=== PATIENT | female | born 1985 | race Two or more races ===

== ENCOUNTER 2024-07-30 15:24 | Outpatient (RCR) | payer MEDICAID, SELFPAY | END 2024-08-15 23:59 | disposition home or self-care (01) | LOC: SCTC 15:24 | PROVIDERS: PCP Family Medicine; Referring Provider Family Medicine; Visit Provider Nurse Practitioner Family | DX: Z09 Encounter for follow-up examination after completed treatment for conditions other than malignant neoplasm (principal); Z86.718 Personal history of other venous thrombosis and embolism; Z86.711 Personal history of pulmonary embolism; Z79.01 Long term (current) use of anticoagulants; Z86.2 Personal history of diseases of the blood and blood-forming organs and certain disorders involving the immune mechanism | CPT/HCPCS: 99214; G0463 ==

== ENCOUNTER 2024-09-29 15:29 | Outpatient (RCR) | payer MEDICAID, SELFPAY | END 2024-10-13 23:59 | disposition home or self-care (01) | LOC: SCTC 15:29 | PROVIDERS: PCP Family Medicine; Referring Provider Family Medicine; Visit Provider Nurse Practitioner Family | DX: Z09 Encounter for follow-up examination after completed treatment for conditions other than malignant neoplasm (principal); Z86.2 Personal history of diseases of the blood and blood-forming organs and certain disorders involving the immune mechanism; Z86.711 Personal history of pulmonary embolism; Z86.718 Personal history of other venous thrombosis and embolism; Z79.01 Long term (current) use of anticoagulants | CPT/HCPCS: 99212; G0463 ==

== ENCOUNTER 2024-11-12 13:24 | Outpatient (RCR) | payer MEDICAID, SELFPAY | END 2024-11-12 23:59 | disposition home or self-care (01) | LOC: SCTC 13:24 | PROVIDERS: PCP Family Medicine; Referring Provider Family Medicine; Visit Provider Internal Medicine Hematology & Oncology | DX: D50.9 Iron deficiency anemia, unspecified (principal); N92.0 Excessive and frequent menstruation with regular cycle; Z86.711 Personal history of pulmonary embolism; Z86.718 Personal history of other venous thrombosis and embolism; Z79.01 Long term (current) use of anticoagulants | CPT/HCPCS: 96365; 96375; J1756; J2919; J3490; J7040; J7050 ==

== ENCOUNTER 2024-12-10 13:15 | Outpatient (RCR) | payer MEDICAID, SELFPAY | END 2024-12-13 23:59 | disposition home or self-care (01) | LOC: SCTC 13:15 | PROVIDERS: PCP Family Medicine; Referring Provider Family Medicine; Visit Provider Internal Medicine Hematology & Oncology | DX: D50.9 Iron deficiency anemia, unspecified (principal); Z86.718 Personal history of other venous thrombosis and embolism; Z79.01 Long term (current) use of anticoagulants | CPT/HCPCS: 96365; A4216; J1756; J7040; J7050 ==

== ENCOUNTER 2025-01-06 13:54 | Outpatient (RCR) | payer MEDICAID, SELFPAY ==
[2024-12-18 15:00] LABS: Basophils % (Auto) 1 % (0-2.5); Eosinophils # (Auto) 0.2 Thou/mm3 (0.0-0.5); Eosinophils % (Auto) 4 % (0-10); Hematocrit 33.1 % (36.0-46.0); Hemoglobin 11.4 g/dL (12.0-16.0); Immature Granulocytes % (Auto) 1 % (0-0); Immature Granulocytes Auto 0.03 Thou/mm3 (0.00-0.00); Lymphocytes # (Auto) 1.6 Thou/mm3 (1.0-4.8); Lymphocytes % (Auto) 34 % (10-50); Mean Corpuscular HGB Conc 34.4 g/dl (31.0-37.0); Mean Corpuscular Hemoglobin 29.2 pg (25.0-35.0); Mean Corpuscular Volume 85 fL (80-100); Monocytes # (Auto) 0.4 Thou/mm3 (0.0-0.8); Monocytes % (Auto) 9 % (0-12); Neutrophils # (Auto) 2.4 Thou/mm3 (1.8-7.7); Neutrophils % (Auto) 51 % (37-80); Nucleated Red Blood Cell % 0 /100 WBC (0); Platelet Count 228 Thou/mm3 (140-440); RDW Standard Deviation 47.7 fL (36.4-46.3); Red Blood Count 3.91 Miln/mm3 (4.00-5.20); White Blood Count 4.7 Thou/mm3 (3.6-11.0)
[2024-12-18 15:19] LABS: Alanine Aminotransferase 13 U/L (10-49); Albumin/Globulin Ratio 1.5 (1.2-2.2); Alkaline Phosphatase 77 U/L (46-116); Anion Gap 12 (7-16); Aspartate Amino Transferase 19 U/L (0-34); BUN/Creatinine Ratio 14 Ratio (12-20); Bilirubin,Total 0.4 mg/dL (0.3-1.2); Blood Urea Nitrogen 23 mg/dL (9-23); Calcium 8.4 mg/dL (8.3-10.6); Calcium (Corrected) 8.4 mg/dL (8.5-10.1); Carbon Dioxide 21.4 mMol/L (20.0-31.0); Chloride 109 mMol/L (98-107); Creatinine (Component) 1.6 mg/dL (0.6-1.3); Globulin 2.7 gm/dL (2.3-3.5); Glucose 89 mg/dL (74-106); Osmolality,Calculated 285 (275-295); Potassium 4.1 mMol/L (3.4-5.1); Sodium 142 mMol/L (136-145); Total Protein 6.7 gm/dL (5.7-8.2); eGFR 42 See Note
== END 2025-01-12 23:59 | disposition home or self-care (01) ==
LOC: SCTC 13:54
PROVIDERS: PCP Family Medicine; Referring Provider Family Medicine; Visit Provider Internal Medicine Hematology & Oncology
DX: D50.9 Iron deficiency anemia, unspecified (principal); Z86.718 Personal history of other venous thrombosis and embolism; Z86.711 Personal history of pulmonary embolism; Z79.01 Long term (current) use of anticoagulants; N92.0 Excessive and frequent menstruation with regular cycle; N28.9 Disorder of kidney and ureter, unspecified
CPT/HCPCS: 80053; 85025; 96365; 96413; 99212; A4216; J1756; J7040; J7050; G0463

== ENCOUNTER 2025-03-10 09:50 | Outpatient (AMB) | payer MEDICAID, SELFPAY ==
[2025-03-10 10:06] VITALS: BP 129/86; PULSE 70; RESP 16; TEMP 36.2; O2SAT 98
--- NOTE | 2025-03-10 10:06 | AMB.GYNCLNOT ---
Vital Signs 03/10/25 10:06 Weight 95.878 kg Weight Measurement Method Standing Scale BP 129/86 H Blood Pressure Source Automatic Cuff Blood Pressure Location Left Upper Arm Position Sitting Respiration 16 Pulse 70 Pulse Source Monitor Temp 97.2 F Temp Source Oral Pulse Oximetry (%) 98 Oxygen Delivery Method Room Air Allergies/Home Meds Allergies & Medications Allergies No Known Allergies Allergy (Verified 03/10/25 10:07) Medication Reconciliation No Known Home Medications 03/10/25 [History Confirmed 03/10/25] Intake Visit Data Collection New Patient or Established: Established Patient (seen at [facility] within 3 years) Reason for Visit:: OBC Seen by Clinical Staff ONLY (RN/MA): No General Production Manager Required: Yes General Production Manager's name/title: PARVIZ REID MA Do You Feel Safe at Home: Yes Authorities Contacted: N/A PCP or OBGYN visit in last 3 months: Yes Date of Last PCP or OBGYN visit: 03/10/25 Hx Now: No Are you currently on any form of Control: No Last menstrual period: 02/17/25 Pain Present Currently: No Pain Scale Used: Sy-Mirza/Numerical Pain scale:: 0 Smoking Status Smoking Status: Never smoker Ground Control Approach Technician history Ground Control Approach Technician History Menstrual regularity: regular Flow: heavy Monthly: Yes How many days does period last: 7 Age at menarche: 13 Menopausal: No Currently sexually active: Yes Questionnaires Covid-19 Vaccine Questionnaire Has patient been vacinated for Covid-19 Have you been vacinated for Covid-19: Yes PHQ-9 PHQ-2 Over the last 2 weeks, how often have you been bothered by any of the following problems? 1. Little interest or pleasure in doing things: not at all 2. Feeling down, depressed, or hopeless: not at all Total score: 0 PHQ-9 3. Trouble falling or staying asleep, or sleeping too much: Not at all 4. Feeling tired or having little energy: Not at all 5. Poor appetite or overeating: Not at all 6. Feeling bad about yourself - or that you are a failure or have let yourself or your family down: Not at all 7. Trouble concentrating on things, such as reading the newspaper or watching television: Not at all 8. Moving or speaking so slowly that other people could have noticed? - Or the opposite - being so fidgety or restless that you have been moving around a lot more than usual: not at all 9. Thoughts that you would be better off or of hurting yourself in some way: Not at all Total score: 0 If you checked off any problems, how difficult have these problems made it for you to do your work, take care of things at home, or get along with other people?: not difficult at all Source: Developed by Drs. Zeke Strong, Jacquelyn Gilbert, Kelvin Geronimo and colleagues, with an educational samuel from [employer]. Depression screen completed yes Social History Living Situation History Marital Status: Single Lives With: Family Housing: House Tobacco History Smoking Status: Never smoker Second Hand Smoke Exposure: No Alcohol History Alcohol Intake: Never Domestic Abuse History Do You Feel Safe at Home: Yes Office Procedures OB Clinic LOC & Office Proc's Nursing/Assessment Patient Status: Established Patient OB Clinic Nursing Assessment: Medication Reconciliation, Update PMH in EMR and Vital Signs OB Clinic Coordination of Care: Education Complex Pt/Fam, Consent,records obtained, informed consent, Lab and Imaging orders, Results/Orders obtained and Staff clarify orders Established Patient Charge Established Patient Point Assignment: 85 Established Patient Point Charge: EP Level 3 (80-115) Assessment & Plan Diagnosis / Problem List (1) Pulmonary embolism: Status: Acute (2) Acute thrombosis of mesenteric vein: Status: Acute (3) Anticoagulation adequate: Status: Acute (4) Menorrhagia due to blood coagulation disorder: Status: Acute
== END 2025-03-10 10:19 | disposition home or self-care (01) ==
LOC: HODSOBC 09:50
PROVIDERS: Supervising Provider Obstetrics & Gynecology; Visit Provider Obstetrics & Gynecology
DX: N92.0 Excessive and frequent menstruation with regular cycle (principal); K55.059 Acute (reversible) ischemia of intestine, part and extent unspecified; I26.99 Other pulmonary embolism without acute cor pulmonale; D68.9 Coagulation defect, unspecified
CPT/HCPCS: 99213; G0463

== ENCOUNTER 2025-03-25 13:58 | Outpatient (RCR) | payer MEDICAID, SELFPAY | END 2025-04-14 23:59 | disposition home or self-care (01) | LOC: SCTC 13:58 | PROVIDERS: PCP Family Medicine; Referring Provider Nurse Practitioner Family; Visit Provider Nurse Practitioner Family | DX: D50.9 Iron deficiency anemia, unspecified (principal); N92.0 Excessive and frequent menstruation with regular cycle; Z86.711 Personal history of pulmonary embolism; Z86.718 Personal history of other venous thrombosis and embolism; Z79.01 Long term (current) use of anticoagulants; N28.9 Disorder of kidney and ureter, unspecified; E66.9 Obesity, unspecified; Z68.36 Body mass index [BMI] 36.0-36.9, adult | CPT/HCPCS: 99212; G0463 ==

== ENCOUNTER → 2025-04-30 | Outpatient (CLI) | payer MEDICAID, SELFPAY ==
--- NOTE | 2025-04-30 14:30 | XR_ITS ---
Examination: Pelvic ultrasound, transabdominal, complete Technique: Transabdominal ultrasound of the pelvis performed using grayscale imaging Date and time of exam: April 30, 2025, 1443 hours INDICATIONS: Irregular vaginal bleeding beginning 1 year ago. FINDINGS: Uterus 11.4 cm endometrial stripe 12 mm No uterine mass or intrauterine gestation Right ovary 2.6 cm arterial flow 16 mm follicular cyst Left ovary 2.0 cm arterial flow IMPRESSION: Enlarged uterus but no discrete uterine masses and no intrauterine gestation
== END | disposition home or self-care (01) ==
PROVIDERS: PCP Family Medicine; Referring Provider Obstetrics & Gynecology; Visit Provider Obstetrics & Gynecology
DX: N85.8 Other specified noninflammatory disorders of uterus (principal)
CPT/HCPCS: 76856

== ENCOUNTER 2025-05-13 10:12 | Outpatient (AMB) | payer MEDICAID, SELFPAY ==
[2025-05-13 10:31] VITALS: BP 120/80; PULSE 71; RESP 18; TEMP 36.5; O2SAT 95; BMI 36.8
--- NOTE | 2025-05-13 10:31 | GYNCLNT_ITS ---
Vital Signs 05/13/25 10:31 Height 1.63 m Height Method Stated Weight 97.182 kg Weight Measurement Method Standing Scale BMI 36.8 BP 120/80 Blood Pressure Source Automatic Cuff Blood Pressure Location Right Upper Arm Position Sitting Respiration 18 Pulse 71 Pulse Source Monitor Temp 97.7 F Temp Source Temporal Artery Scan Pulse Oximetry (%) 95 Oxygen Delivery Method Room Air Allergies/Home Meds Allergies & Medications Allergies No Known Allergies Allergy (Verified 05/13/25 10:32) Medication Reconciliation No Known Home Medications 03/10/25 [History Confirmed 05/13/25] Intake Visit Data Collection New Patient or Established: Established Patient (seen at [facility] within 3 years) Reason for Visit:: US RESULTS Seen by Clinical Staff ONLY (RN/MA): No Shipping Agent Required: Yes Shipping Agent's name/title: PARVIZ REID MA Do You Feel Safe at Home: Yes Authorities Contacted: N/A PCP or OBGYN visit in last 3 months: Yes Date of Last PCP or OBGYN visit: 03/10/25 Hx Now: No Are you currently on any form of Control: No Last menstrual period: 04/23/25 Pain Present Currently: No Pain Scale Used: Sy-Mirza/Numerical Pain scale:: 0 Smoking Status Smoking Status: Never smoker Immunizations Flu Vaccine in the Last 12 Months: No Flu Vaccine Exclusion Criteria: No Exclusion Criteria Personal Injury Law Specialist history Personal Injury Law Specialist History Menstrual regularity: irregular Flow: heavy Monthly: Yes How many days does period last: 6 Age at menarche: 13 Currently sexually active: Yes Questionnaires Covid-19 Vaccine Questionnaire Has patient been vacinated for Covid-19 Have you been vacinated for Covid-19: No PHQ-9 PHQ-2 Over the last 2 weeks, how often have you been bothered by any of the following problems? 1. Little interest or pleasure in doing things: not at all 2. Feeling down, depressed, or hopeless: not at all Total score: 0 PHQ-9 3. Trouble falling or staying asleep, or sleeping too much: Not at all 4. Feeling tired or having little energy: Not at all 5. Poor appetite or overeating: Not at all 6. Feeling bad about yourself - or that you are a failure or have let yourself or your family down: Not at all 7. Trouble concentrating on things, such as reading the newspaper or watching television: Not at all 8. Moving or speaking so slowly that other people could have noticed? - Or the opposite - being so fidgety or restless that you have been moving around a lot more than usual: not at all 9. Thoughts that you would be better off or of hurting yourself in some way: Not at all Total score: 0 If you checked off any problems, how difficult have these problems made it for you to do your work, take care of things at home, or get along with other people?: not difficult at all Source: Developed by Drs. Zeke Strong, Jacquelyn Gilbert, Kelvin Geronimo and colleagues, with an educational samuel from [employer]. Depression screen completed yes Social History Living Situation History Marital Status: Lives With: Family Housing: House Tobacco History Smoking Status: Never smoker Second Hand Smoke Exposure: No Alcohol History Alcohol Intake: Never Domestic Abuse History Do You Feel Safe at Home: Yes History of Present Illness HPI Narrative Sosa Valencia is a 39-year-old female with a history of superior mesenteric thrombosis, bilateral pulmonary emboli, iron deficiency anemia, renal i nsufficiency, and class C diabetes who presents for emergency room follow-up regarding abnormal uterine bleeding secondary to anticoagulation therapy. The patient was previously hospitalized on March 10, 2025, for acute mesenteric ischemia with unprovoked superior mesenteric thrombosis and bilateral pulmonary emboli, along with abnormal uterine bleeding secondary to anticoagulation. She is currently being treated at a cancer treatment center and reports heavy menstrual bleeding, which she understands is a known side effect of her apixaban therapy. She is currently taking apixaban 5 milligrams twice daily and reports that this medication will continue indefinitely. The patient's current medications include apixaban, vanofar, diphenyspine, teriparatide, insulin, Zofran, and Tylenol. She was initially treated with Eliquis 10 milligrams for 7 days, followed by the current 5 milligram dosing regimen. ROS: Genitourinary: Positive for heavy menstrual bleeding. Exam General General Appearance: alert, in no apparent distress and healthy appearing Head Head exam: atraumatic Neck Neck exam: Present normal inspection and trachea midline Chest Chest inspection: Present normal inspection and symmetric chest wall rise External exam: Present normal external exam; Absent tenderness Neuro Neurological exam: Present oriented X3 Psych Psychiatric exam: Present normal affect and normal mood Office Procedures OBC Clinic LOC & Office Proc's Nursing/Assessment Patient Status: Established Patient OB Clinic Nursing Assessment: Medication Reconciliation, Update PMH in EMR and Vital Signs OB Clinic Coordination of Care: Complex Care and Chronic Disease 1-5, Education Complex Pt/Fam, Consent,records obtained, informed consent, Results/Orders obtained and Staff clarify orders Established Patient Charge Established Patient Point Assignment: 95 Established Patient Point Charge: EP Level 3 (80-115) Assessment & Plan Diagnosis / Problem List (1) Pulmonary embolism: Status: Acute (2) Acute thrombosis of mesenteric vein: Status: Acute (3) Anticoagulation adequate: Status: Acute (4) Menorrhagia due to blood coagulation disorder: Status: Acute Plan Abnormal Uterine Bleeding Secondary to Anticoagulation: - Heavy menstrual bleeding as known side effect of apixaban 5 mg twice daily. - Patient continues indefinite anticoagulation for history of superior mesenteric thrombosis and bilateral pulmonary emboli. - Pelvic ultrasound from 04/30/2025 shows normal uterus measuring 11.4 cm with no fibroids, masses, or ovarian abnormalities. - Hormonal or medical management options contraindicated. Plan: - Endometrial ablation procedure planned (vaginal approach to burn uterine lining without hysterectomy). - Obtain surgical clearance from oncology team at [facility]. - Coordinate with oncology to hold apixaban for 7 days before and 7 days after surgery. - Submit insurance authorization for procedure. - Schedule surgery once insurance approval obtained. - Patient will be contacted when surgery is approved. Superior Mesenteric Thrombosis: - History of unprovoked superior mesenteric thrombosis with bilateral pulmonary emboli requiring long-term anticoagulation. - Currently managed by oncology team at [facility]. Plan: - Continue apixaban 5 mg twice daily indefinitely. - Ongoing management by oncology team at [facility].
== END 2025-05-13 10:53 | disposition home or self-care (01) ==
LOC: HODSOBC 10:12
PROVIDERS: PCP Family Medicine; Referring Provider Family Medicine; Supervising Provider Obstetrics & Gynecology; Visit Provider Obstetrics & Gynecology
DX: N93.8 Other specified abnormal uterine and vaginal bleeding (principal); D68.32 Hemorrhagic disorder due to extrinsic circulating anticoagulants; T45.515A Adverse effect of anticoagulants, initial encounter; E11.9 Type 2 diabetes mellitus without complications; Z86.711 Personal history of pulmonary embolism; Z86.718 Personal history of other venous thrombosis and embolism; Z79.01 Long term (current) use of anticoagulants; Z79.4 Long term (current) use of insulin
CPT/HCPCS: 99213; G0463

== ENCOUNTER 2025-07-01 10:44 | Outpatient (AMB) | payer MEDICAID, SELFPAY ==
--- NOTE | 2025-07-01 10:51 | AMB.GYNCLNOT ---
Vital Signs 07/01/25 10:55 Height 1.63 m Height Method Stated Weight 97.579 kg Weight Measurement Method Standing Scale BMI 36.7 BP 128/80 Blood Pressure Source Automatic Cuff Blood Pressure Location Left Upper Arm Position Sitting Respiration 18 Pulse 98 Pulse Source Monitor Temp 98.2 F Temp Source Oral Pulse Oximetry (%) 98 Oxygen Delivery Method Room Air Allergies/Home Meds Allergies & Medications Allergies No Known Allergies Allergy (Verified 07/01/25 10:56) Medication Reconciliation apixaban 5 mg tablet (Eliquis) 5 mg PO BID 07/01/25 [History Confirmed 07/01/25] losartan 50 mg tablet 50 mg PO QDAY 07/01/25 [History Confirmed 07/01/25] Intake Visit Data Collection New Patient or Established: Established Patient (seen at [facility] within 3 years) Reason for Visit:: PRE-OP Seen by Clinical Staff ONLY (RN/MA): No Dental Equipment Technician Required: Yes Dental Equipment Technician's name/title: PARVIZ REID MA Do You Feel Safe at Home: Yes Authorities Contacted: N/A PCP or OBGYN visit in last 3 months: Yes Hx Now: No Are you currently on any form of Control: No Pain Present Currently: No Pain Scale Used: Sy-Mirza/Numerical Pain scale:: 0 Smoking Status Smoking Status: Never smoker Immunizations Flu Vaccine in the Last 12 Months: No Flu Vaccine Exclusion Criteria: No Exclusion Criteria Fork Lift Technician history Fork Lift Technician History Menstrual regularity: regular Flow: normal Monthly: Yes Age at menarche: 13 Menopausal: No Currently sexually active: No CAR HOSTLER: Past Medical History Past Medical History: No Hx Neurological Disorders, Yes Hx Cardiac Disorders, Yes Hx Hypertension, No Hx Cancer, Yes Hx Blood Disorders, Yes Hx Anemia, Yes Hx Gastrointestinal Disorders, Yes Hx Renal Disease (Dr Fontana), No Hx Diabetes Mellitus Type 1, No Hx Diabetes Mellitus Type 2 and Yes Hx Tubal Ligation Questionnaires Covid-19 Vaccine Questionnaire Has patient been vacinated for Covid-19 Have you been vacinated for Covid-19: Yes PHQ-9 PHQ-2 Over the last 2 weeks, how often have you been bothered by any of the following problems? 1. Little interest or pleasure in doing things: not at all 2. Feeling down, depressed, or hopeless: not at all Total score: 0 PHQ-9 3. Trouble falling or staying asleep, or sleeping too much: Not at all 4. Feeling tired or having little energy: Not at all 5. Poor appetite or overeating: Not at all 6. Feeling bad about yourself - or that you are a failure or have let yourself or your family down: Not at all 7. Trouble concentrating on things, such as reading the newspaper or watching television: Not at all 8. Moving or speaking so slowly that other people could have noticed? - Or the opposite - being so fidgety or restless that you have been moving around a lot more than usual: not at all 9. Thoughts that you would be better off or of hurting yourself in some way: Not at all Total score: 0 If you checked off any problems, how difficult have these problems made it for you to do your work, take care of things at home, or get along with other people?: not difficult at all Source: Developed by Drs. Zeke Strong, Jacquelyn Gilbert, Kelvin Geronimo and colleagues, with an educational samuel from [employer]. Depression screen completed yes Social History Living Situation History Lives With: Family Housing: House Tobacco History Smoking Status: Never smoker Second Hand Smoke Exposure: No Alcohol History Alcohol Intake: Never Domestic Abuse History Do You Feel Safe at Home: Yes History of Present Illness HPI Narrative Sosa Del Angel presents for pre-operative consultation for hysteroscopy endometrial ablation for Abnormal Uterine Bleeding. The patient has a history of kidney issues and is on anticoagulation, limiting hormonal treatment and major surgical options. She is prepared for the upcoming procedure and has no specific questions or concerns at this time. The patient has been taking blood thinners, Tylenol, and narcotic pain medicines. ROS: Negative except as stated above, limited to CAR HOSTLER and pertinent complaints. Exam General General Appearance: alert, in no apparent distress and healthy appearing Head Head exam: atraumatic Neck Neck exam: Present normal inspection and trachea midline Chest Chest inspection: Present normal inspection and symmetric chest wall rise External exam: Present normal external exam; Absent tenderness Neuro Neurological exam: Present oriented X3 Psych Psychiatric exam: Present normal affect and normal mood Office Procedures OBC Clinic LOC & Office Proc's Nursing/Assessment Patient Status: Established Patient OB Clinic Nursing Assessment: Medication Reconciliation, Update PMH in EMR and Vital Signs OB Clinic Coordination of Care: Consent,records obtained, informed consent, Education Simp Pt/Fam, Lab and Imaging orders, Results/Orders obtained and Staff clarify orders Established Patient Charge Established Patient Point Assignment: 80 Established Patient Point Charge: Level 3 (80-115) Assessment & Plan Diagnosis / Problem List (1) Pulmonary embolism: Status: Acute (2) Acute thrombosis of mesenteric vein: Status: Acute (3) Anticoagulation adequate: Status: Acute (4) Menorrhagia due to blood coagulation disorder: Status: Acute Plan Pre-operative counseling for scheduled hysteroscopy endometrial ablation for Abnormal Uterine Bleeding (AUB): - Patient scheduled for surgery tomorrow with kidney issues and anticoagulation limiting treatment options. - Unable to have hormonal treatment or major surgery due to anticoagulation status. - Recovery expectations discussed including 3-5 day recovery period with minimal pain due to no cuts or stitches required for this procedure. Plan: - Hysteroscopy endometrial ablation for AUB scheduled for tomorrow. - Patient to arrive 30 minutes before surgery time. - Post-operative pain management with Tylenol and narcotic pain medications: ? Ibuprofen contraindicated due to kidney issues and bleeding problems with blood thinners. - Resume blood thinners 24 hours after procedure. - Intraoperative photography planned to document before and after images. - Patient instructed to ask any additional questions at time of surgery.
[2025-07-01 10:55] VITALS: BP 128/80; PULSE 98; RESP 18; TEMP 36.8; O2SAT 98; BMI 36.7
== END 2025-07-01 11:23 | disposition home or self-care (01) ==
LOC: HODSOBC 10:44
PROVIDERS: Supervising Provider Obstetrics & Gynecology; Visit Provider Obstetrics & Gynecology
DX: N92.0 Excessive and frequent menstruation with regular cycle (principal); D68.32 Hemorrhagic disorder due to extrinsic circulating anticoagulants; T45.515A Adverse effect of anticoagulants, initial encounter; I10 Essential (primary) hypertension; Z86.711 Personal history of pulmonary embolism; Z86.718 Personal history of other venous thrombosis and embolism; Z79.01 Long term (current) use of anticoagulants; Z79.899 Other long term (current) drug therapy
CPT/HCPCS: 99213; G0463

== ENCOUNTER 2025-07-02 05:40 | Day surgery (SDC) | payer MEDICAID, SELFPAY ==
[2025-07-01 09:11] VITALS: BMI 37.1
--- NOTE | 2025-07-01 09:20 | EKG_ITS ---
[facility] Test Date: 2025-07-01 Pat Name: STEPHANIE PALMER Department: Room: - Gender: Female Retail Manager In Training: ERIKA : 1985 Requested By: Chance Crooks Order Number: [id number] Reading MD: Chance Crooks Measurements Intervals [place] Rate: 59 P: 12 PA: 180 QRS: 35 QRSD: 90 T: 10 QT: 398 QTc: 397 Interpretive Statements SINUS BRADYCARDIA No previous ECG available for comparison /store/S0/[id number].pdf
[2025-07-01 09:51] LABS: Basophils # (Auto) 0.1 Thou/mm3 (0.0-0.2); Basophils % (Auto) 1 % (0-2.5); Eosinophils # (Auto) 0.2 Thou/mm3 (0.0-0.5); Eosinophils % (Auto) 3 % (0-10); Hematocrit 37.7 % (36.0-46.0); Hemoglobin 12.4 g/dL (12.0-16.0); Immature Granulocytes Auto 0.01 Thou/mm3 (0.00-0.00); Lymphocytes # (Auto) 1.7 Thou/mm3 (1.0-4.8); Lymphocytes % (Auto) 36 % (10-50); Mean Corpuscular HGB Conc 32.9 g/dl (31.0-37.0); Mean Corpuscular Hemoglobin 30.0 pg (25.0-35.0); Mean Corpuscular Volume 91 fL (80-100); Monocytes # (Auto) 0.4 Thou/mm3 (0.0-0.8); Monocytes % (Auto) 9 % (0-12); Neutrophils # (Auto) 2.4 Thou/mm3 (1.8-7.7); Neutrophils % (Auto) 51 % (37-80); Nucleated Red Blood Cell # 0.00 Thou/mm3 (0.00-0.00); Nucleated Red Blood Cell % 0 /100 WBC (0); Platelet Count 247 Thou/mm3 (140-440); RDW Standard Deviation 40.6 fL (36.4-46.3); Red Blood Count 4.14 Miln/mm3 (4.00-5.20); White Blood Count 4.7 Thou/mm3 (3.6-11.0)
[2025-07-01 10:11] LABS: Alanine Aminotransferase 24 U/L (10-49); Albumin, Serum 4.4 gm/dL (3.5-5.0); Albumin/Globulin Ratio 1.4 (1.2-2.2); Alkaline Phosphatase 75 U/L (46-116); Anion Gap 10 (7-16); Aspartate Amino Transferase 28 U/L (0-34); BUN/Creatinine Ratio 12 Ratio (12-20); Bilirubin,Total 0.4 mg/dL (0.3-1.2); Blood Urea Nitrogen 16 mg/dL (9-23); Calcium 8.8 mg/dL (8.3-10.6); Calcium (Corrected) 8.8 mg/dL (8.5-10.1); Carbon Dioxide 24.2 mMol/L (20.0-31.0); Chloride 107 mMol/L (98-107); Creatinine (Component) 1.3 mg/dL (0.6-1.3); Estimated Creatinine Clearance 66.1 mL/min (>60); Globulin 3.2 gm/dL (2.3-3.5); Glucose 103 mg/dL (74-106); Osmolality,Calculated 282 (275-295); Potassium 4.7 mMol/L (3.4-5.1); Sodium 141 mMol/L (136-145); Total Protein 7.6 gm/dL (5.7-8.2); eGFR 54 See Note
[2025-07-01 10:13] LABS: HCG,Qualitative Serum Negative
[2025-07-02] VITALS (7 sets, daily range): BP systolic 109–122; BP diastolic 68–78; PULSE 67–82; RESP 14–16; TEMP 36.2–36.3; O2SAT 96–100; BMI 36.9
--- NOTE | 2025-07-02 08:15 | SUR.PHASEI ---
pt received from OR in recovery bay 1. pt asleep but responds to voice, breathing unlabored on room air. v/s stable. pt dressing peripad cdi. report received from Dr. Crooks and Deneen Cerda.
--- NOTE | 2025-07-02 08:21 | ESOP_ITS ---
Operative Note - OFF TRACK BETTING MANAGER Procedure Date of procedure: 07/02/25 Procedure Performed: Diagnostic hysteroscopy, dilatation and curettage, NovaSure endometrial ablation Indication: 39-year-old with AUB on anticoagulant therapy Anesthesia type: General Procedure description: Informed consent was obtained. The patient was brought to the operating room, identified by two patient identifiers, and placed in dorsal lithotomy position. After induction of anesthesia, the perineum was prepped and draped in the usual sterile fashion. A speculum was inserted, and the cervix was visualized. An atraumatic tenaculum was applied to the anterior lip of the cervix. The uterus was sounded to 8 cm, and the cervix was serially dilated to 7 mm. A diagnostic hysteroscopy was performed under direct visualization using a fluid management system, with a starting fluid deficit of zero. The uterine cavity was visualized and noted to have a thickened endometrial lining and multiple endome trial polyps, particularly in the mid and lower segments. No intrauterine synechiae or structural abnormalities were noted. A gentle dilation and curettage was then performed using a #0 sharp curette. Endometrial curettings were collected and sent to pathology. Following D&C, global endometrial ablation was performed using the NovaSure device. Cavity measurements were: * Length: 5 cm * Width: 3.5 cm * Power settin * Ablation duration: 1 minute 30 seconds * Fluid deficit: 20 mL The NovaSure device was deployed and activated per protocol. Following completion of the cycle, the device was removed and the cavity was reinspected. Minimal bleeding was observed, consistent with post-ablation findings. No complications were encountered. The instruments were removed, the cervix was cleansed, and the patient was awakened and transferred to the recovery area in stable condition. All sponge, instrument, and lap counts were correct ?2. Specimen: other Estimated blood loss (ml): 2 Complications: none Surgical staff Operation Date: 07/02/25 07:30 Case Staff Anesthesiologist: Chance Crooks Diagnosis Discharge Diagnosis (1) Pulmonary embolism: Status: Acute (2) Acute thrombosis of mesenteric vein: Status: Acute (3) Anticoagulation adequate: Status: Acute Problem List Completed Was Problem List Reviewed/Reconciled?: Yes
--- NOTE | 2025-07-02 09:15 | SUR.PHASEII ---
pt able to tolerate oral fluids without difficulty swallowing or nausea/vomiting.
--- NOTE | 2025-07-02 09:19 | SUR.PHASEII ---
pt awake and alert, breathing unlabored on room air. v/s stable. pt dressing peripad cdi. pt able to ambulate to wheelchair with steady gait. d/c instructions given with Anjali in room using language interpreter Lucille in house language interpreter, all questions answered. pt d/c via wheelchair with all belongings.
== END 2025-07-02 09:19 | disposition home or self-care (01) ==
PROVIDERS: PCP Physician Assistant; Referring Provider Obstetrics & Gynecology; Visit Provider Obstetrics & Gynecology
PROC: 0U5B8ZZ Destruction of Endometrium, Via Natural or Artificial Opening Endoscopic (ICD-10-PCS; CPT 58563; principal; 2025-07-02 07:30)
DX: N93.9 Abnormal uterine and vaginal bleeding, unspecified (principal); I26.99 Other pulmonary embolism without acute cor pulmonale; K55.059 Acute (reversible) ischemia of intestine, part and extent unspecified
CPT/HCPCS: 58563; 36415; 80053; 84703; 85025; 86850; 86900; 86901; 93005; A4217; A4649; J1100; J2371; J2704; J2765; J3010; J3490

== ENCOUNTER 2025-07-14 13:03 | Outpatient (AMB) | payer MEDICAID, SELFPAY ==
[2025-07-14 13:33] VITALS: BP 113/77; PULSE 75; RESP 18; TEMP 36.6; O2SAT 98; BMI 36.8
--- NOTE | 2025-07-14 13:33 | GYNCLNT_ITS ---
Vital Signs 07/14/25 13:33 Height 1.63 m Height Method Stated Weight 98.033 kg Weight Measurement Method Standing Scale BMI 36.8 BP 113/77 Blood Pressure Source Automatic Cuff Blood Pressure Location Right Upper Arm Position Sitting Respiration 18 Pulse 75 Pulse Source Monitor Temp 97.9 F Temp Source Temporal Artery Scan Pulse Oximetry (%) 98 Oxygen Delivery Method Room Air Allergies/Home Meds Allergies & Medications Allergies No Known Allergies Allergy (Verified 07/14/25 13:34) Medication Reconciliation doxycycline monohydrate 100 mg capsule 100 mg PO BID 7 days #14 caps 07/14/25 [Rx] Intake Visit Data Collection New Patient or Established: Established Patient (seen at [facility] within 3 years) Reason for Visit:: POST OP Seen by Clinical Staff ONLY (RN/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 Do You Feel Safe at Home: Yes Authorities Contacted: N/A PCP or OBGYN visit in last 3 months: No Hx Now: No Are you currently on any form of Control: No Pain Present Currently: No Pain Scale Used: Sy-Mirza/Numerical Pain scale:: 0 Smoking Status Smoking Status: Never smoker Immunizations Flu Vaccine in the Last 12 Months: No Flu Vaccine Exclusion Criteria: No Exclusion Criteria 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 Menstrual regularity: irregular Flow: heavy Monthly: No 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 1. Little interest or pleasure in doing things: not at all PHQ-9 8. Moving or speaking so slowly that other people could have noticed? - Or the opposite - being so fidgety or restless that you have been moving around a lot more than usual: not at all Source: Developed by Drs. Zeke Strong, Jacquelyn Gilbert, Kelvin Geronimo and colleagues, with an educational samuel from [employer]. Social History Living Situation History Lives With: Family Housing: House Tobacco History Smoking Status: Never smoker Second Hand Smoke Exposure: No Alcohol History Alcohol Intake: Never Domestic Abuse History Do You Feel Safe at Home: Yes History of Present Illness HPI Narrative Sosa Del Angel presents for a postoperative visit following hysteroscopy and endometrial ablation performed on July 02, 2025. The patient is experiencing vaginal discharge with an associated odor following the procedure. She reports that this discharge has developed since the surgery. The patient did not receive antibiotics immediately after the surgical procedure. She has a history of hysteroscopy and endometrial ablation on July 02, 2025. ROS: Genitourinary: Positive for vaginal discharge with odor. Exam General General Appearance: alert, in no apparent distress and healthy appearing Head Head exam: atraumatic Neck Neck exam: Present normal inspection and trachea midline Chest Chest inspection: Present normal inspection and symmetric chest wall rise External exam: Present normal external exam; Absent tenderness Neuro Neurological exam: Present oriented X3 Psych Psychiatric exam: Present normal affect and normal mood Assessment & Plan Diagnosis / Problem List (1) Acute thrombosis of mesenteric vein: Status: Acute (2) Pulmonary embolism: Status: Acute (3) Menorrhagia due to blood coagulation disorder: Status: Acute (4) Anticoagulation adequate: Status: Acute Plan Postoperative malodorous vaginal discharge: - Patient experiencing vaginal discharge with odor following endometrial ablation procedure. - Expected after endometrial ablation as burned tissue is sloughed off and expelled. - Discharge can persist for up to one month post-procedure as tissues are naturally eliminated from the uterus. Plan: - Prescribe antibiotics for 5-7 days to address malodorous discharge. - Patient counseled that discharge may continue for up to one month post- procedure as part of normal healing process. Endometrial pathology results: - Pathology report from endometrial ablation procedure shows no evidence of cancer or precancerous changes in the uterus. Plan: - Results reviewed with patient.
== END 2025-07-14 13:40 | disposition home or self-care (01) ==
LOC: HODSOBC 13:03
PROVIDERS: PCP Physician Assistant; Referring Provider Physician Assistant; Supervising Provider Obstetrics & Gynecology; Visit Provider Obstetrics & Gynecology
DX: Z48.816 Encounter for surgical aftercare following surgery on the genitourinary system (principal); N89.8 Other specified noninflammatory disorders of vagina; I10 Essential (primary) hypertension; Z87.42 Personal history of other diseases of the female genital tract; Z86.711 Personal history of pulmonary embolism; Z86.718 Personal history of other venous thrombosis and embolism
CPT/HCPCS: 99213; G0463